=== PATIENT | female | born 1945 | race Hispanic/Latino ===

== ENCOUNTER 2019-05-07 19:08 | Emergency (ER) | payer MEDICARE ==
[~2019-05-07] VITALS: Ht 152.4 cm; Wt 68.0 kg
[2019-05-07] MEDS ORDERED: SODIUM CHLORIDE 0.9% 1000ML 1,000 ML IV ONE (19:30)
[2019-05-07] MEDS ORDERED: ACETAMINOPHEN 325 MG TAB PO ONE (19:30)
[2019-05-07 19:53] LABS: BASOPHILS % 0.3 % (0.0-1.0); HEMATOCRIT 39.6 % (34.2-44.1); HEMOGLOBIN 13.2 g/dL (12.0-16.0); LYMPHOCYTES # (AUTO) 0.8 (1.0-3.2); LYMPHOCYTES % 11.9 % (18.0-39.1); MEAN CORPUSCULAR HEMOGLOBIN 28.7 pg (28-32); MEAN CORPUSCULAR HGB CONC 33.3 g/dL (31-35); MEAN CORPUSCULAR VOLUME 86.1 fL (81-99); MONOCYTES # (AUTO) 0.4 (0.2-0.8); MONOCYTES % 5.5 % (4.4-11.3); NEUTROPHILS # (AUTO) 5.4 (2.1-6.9); NEUTROPHILS % 81.5 % (38.7-80.0); PLATELET COUNT 178 x10e3/uL (140-360); RED CELL DISTRIBUTION WIDTH 12.8 % (11.7-14.4)
[2019-05-07 20:13] LABS: ALBUMIN 4.2 g/dL (3.5-5.0); ALBUMIN/GLOBULIN RATIO 1.1 (0.8-2.0); CALCIUM 9.9 mg/dL (8.4-10.2)
--- NOTE | 2019-05-07 20:25 | Diagnostic Imaging Report ---
EXAMINATION: CHEST SINGLE (PORTABLE) INDICATION: Chest pain. Fever ^fever ^[id number] ^2005 ^Y COMPARISON: None FINDINGS: TUBES and LINES: None. LUNGS: Lungs are well inflated. Perihilar peribronchial hazy opacity could be due to bronchitis. There is no evidence of pneumonia or pulmonary edema. PLEURA: No pleural effusion or pneumothorax. HEART AND MEDIASTINUM: The cardiomediastinal silhouette is unremarkable. BONES AND SOFT TISSUES: No acute osseous lesion. Soft tissues are unremarkable. UPPER ABDOMEN: No free air under the diaphragm. IMPRESSION: Perihilar peribronchial hazy opacity could be due to bronchitis. Signed by: Dr. Jeyson Monique M.D. on 05/07/2019 8:20 PM
[2019-05-07 20:26] LABS: AMYLASE 65 U/L (25-125); LIPASE 39 U/L (8-78)
[2019-05-07 20:30] LABS: BILIRUBIN,URINE NEGATIVE (NEGATIVE); CLARITY,URINE SL CLOUDY (CLEAR); COLOR,URINE YELLOW (YELLOW); KETONES,URINE TRACE (NEGATIVE); LEUKOCYTE ESTERASE ,URINE TRACE (NEGATIVE); NITRITE,URINE NEGATIVE (NEGATIVE); PROTEIN,URINE DIPSTICK 1+ (NEGATIVE); URINE UROBILINOGEN 1 mg/dL (0.2 - 1)
[2019-05-07 20:43] LABS: WBC,URINE (MAN) 0-5 /HPF (0-5)
[2019-05-07 20:44] LABS: BACTERIA,URINE MODERATE /HPF; EPITHELIAL CELLS,URINE FEW /LPF
--- NOTE | 2019-05-07 21:31 | Diagnostic Imaging Report ---
EXAMINATION: Head CT without contrast. HISTORY:Confusion. COMPARISON:None. TECHNIQUE: Multidetector axial images were obtained from the foramen magnum to the vertex without contrast. The images were reconstructed using brain and bone algorithms. Thin section brain images were reformatted into coronal and sagittal planes. Dose modulation, iterative reconstruction, and/or weight based adjustment of the mA/kV was utilized to reduce the radiation dose to as low as reasonably achievable. Intravenous contrast: None IMAGE QUALITY: Acceptable. FINDINGS: Skull/scalp: No lytic or blastic. lesions. No surgical changes. Parenchyma: Nonspecific bilateral frontoparietal patchy white matter hypodensity are likely related to small vessel ischemic changes. No acute hemorrhage, mass or acute major vascular territorial infarct. Arteries: No density suggestive of thrombosis. Dural sinuses: No abnormal density suggestive of thrombosis. Ventricles: No hydrocephalus or displacement. Extra-axial spaces: No abnormal density. Brain volume: Normal for age. Craniocervical junction: No mass, Chiari malformation, or basilar invagination. Sella: No mass. Paranasal/mastoid sinuses: Imaged portions unremarkable. IMPRESSION: No acute intracranial abnormality. Mild supratentorial white matter microvascular ischemic changes. Signed by: Dr. Yani Duran M.D. on 05/07/2019 9:28 PM
--- NOTE | 2019-05-07 21:35 | Diagnostic Imaging Report ---
CT Abdomen and Pelvis without contrast INDICATION: Gastric infection, on antibiotics with recent onset of diarrhea, ^confused earlier today ^[id number] ^2049 ^Y TECHNIQUE: Thin collimation axial images obtained from the diaphragm to the level of the pubic symphysis without nonionic intravenous contrast. Dose reduction techniques used: Automated exposure control, adjustment of the mAs and/or kVp according to patient size, standardized low-dose protocol, and/or iterative reconstruction technique. RADIATION DOSE: Total DLP: 354.4 mGy*cm Estimated effective dose: (DLP x 0.015 x size factor) mSv CTDIvol has been reviewed. It is below the limits set by the Radiation Protocol Committee (RPC). COMPARISON: None. ABDOMEN FINDINGS: Lung Bases: Trace focus of subsegmental atelectasis/scar in the posterior left costophrenic angle. Small hiatal hernia. Liver: Normal in attenuation. Low attenuating lesion in the right lobe measures 7 mm and is too small to characterize. Gallbladder: Absent. No ductal dilatation. Pancreas: Normal attenuation without mass. Spleen: Normal size without mass. Adrenal Glands: No evidence for mass. Kidneys: Right: Excreted contrast in the collecting system without filling defect or hydronephrosis. No cortical mass. Left: Excreted contrast in the collecting system without filling defect or hydronephrosis. No cortical mass. Lymph Nodes: No lymphadenopathy. Aorta: Normal in diameter and diffusely calcified PELVIS FINDINGS: Bowel: Stomach: Normal. Small Bowel: Normal in caliber with normal wall thickness. Large Bowel: Mild burden of diverticulosis coli in the sigmoid colon. No associated inflammation. No large bowel dilatation. Appendix: Normal. Bladder: Contains excreted contrast without intraluminal filling defect. Ureters: No ureteral dilatation. The uterus is present and atrophic. No adnexal mass. Bones: No focal osseous lesions. Soft tissues: Right mastectomy. IMPRESSION: 1. Mild burden of diverticulosis coli. No evidence for bowel obstruction or inflammation. 2. Low attenuating hepatic lesion is too small to characterize. 3. Status post cholecystectomy. No biliary ductal dilatation. Signed by: Dr. Sydni Bran MD on 05/07/2019 9:31 PM
[2019-05-07 23:05] VITALS: BP 143/79
== END 2019-05-07 23:09 | disposition home or self-care (01) ==
LOC: ER 19:08
DX: R50.9 Fever, unspecified (principal); K57.32 Diverticulitis of large intestine without perforation or abscess without bleeding; I10 Essential (primary) hypertension; E78.5 Hyperlipidemia, unspecified; K21.9 Gastro-esophageal reflux disease without esophagitis; Z85.3 Personal history of malignant neoplasm of breast
CPT/HCPCS: 36415; 70450; 71045; 74176; 80053; 81001; 82150; 83605; 83690; 85025; 87040; 87086; 99284; J7030